=== PATIENT | female | born 1945 ===

== ENCOUNTER 2020-08-21 08:56 | Day surgery (SDC) | payer MEDICARE ==
[~2020-08-21] VITALS: Ht 152.4 cm; Wt 55.0 kg
[~2020-08-21 08:56] MED LIST: B-COMPLEX WITH1 EACH PO; GLUCOSAMINE CH1 EACH PO; Milk Thistle175 M1 PO; OMEGA-3 KRILL1 EAC4 PO; OREGANO OIL PO; THERA-D2000 UNIT PO; TOCO1000 PO; [UNRECOGNIZED DRUG - CODE] PO
--- NOTE | 2020-08-21 15:14 | NUR ---
DISCHARGE PT REMAINED A&OX3 AND DENIED ANY PAIN DURING RECOVERY. RIGHT GROIN AND LEFT MID BACK RIB AREA SITES REMAIN CDI-NO HEMATOMA NOTED. PT ABLE TO DRESS SELF INDEPENDANTLY. IV DC'D WITH CANULA IN TACT. DISCHARGE PAPERWORK GONE OVER WITH PT AND SPOUSE. PT AND SPOUSE VERBALLY STATED THE UNDERSTANDING OF THE DISCHARGE EDUCATION AND DENIED ANY QUESTIONS AT THIS TIME. PT WHEELED OUT BY THIS NURSE.
== END 2020-08-21 15:15 | disposition home or self-care (01) ==
LOC: MHTC 08:56
DX: D17.71 Benign lipomatous neoplasm of kidney (principal)
CPT/HCPCS: 36251-LT; 36253-RT; 37243; 50390; 76937; 99152; 99153; C1760; C1769; C1887; C1894; J1644; J2250; J3010; J7030; J7050; Q9967